=== PATIENT | female | born 1990 | race Caucasian/White ===

== ENCOUNTER 2017-03-01 23:29 | Inpatient (IN) | payer OTHER, MEDICAID ==
[~2017-03-01] VITALS: Ht 167.6 cm; Wt 109.6 kg
--- NOTE | ~2017-03-01 | CON ---
PATIENT'S NAME: ASUNCION LEI [facility] AGE: 26 Y [address] ROOM: [place] [address] LOCATION: [facility] ADMIT DATE: 03/01/2017 Consultation DISCHARGE DATE: 03/05/2017 FAMILY PHYSICIAN: Joy Crespo PA-C ATTENDING PHYSICIAN: Mattie Godinez DISCHARGE DIAGNOSES: 1. Status post spontaneous vaginal delivery. 2. Thirty-nine week intrauterine . 3. Labial hematoma. 4. Anemia from acute blood loss. REASON FOR ADMISSION: Labor and spontaneous rupture of membranes. PROCEDURES DURING ADMISSION: Spontaneous vaginal delivery and exam under anesthesia and evacuation of labia hematoma. Please refer to operative notes. HOSPITAL COURSE: The patient is a 26-year-old, -0-3-0, with intrauterine , thirty- nine weeks who presented in labor as well as with rupture of membranes. The patient did have augmentation with Pitocin during her labor and she progressed to complete and had a spontaneous vaginal delivery of a 9 pounds and 10 ounce male infant. Postoperatively, the patient developed a very large 20 x 15 cm hematoma on her right labia that is extending onto her left labia. She was taken to the OR, where evacuation was performed and it was closed. Postoperatively, the patient's hemoglobin was 8.7. A Larry catheter was left in place for 24 hours, it was removed and the patient was able to urinate. She is able ambulate, she was tolerating p.o., and was asymptomatic from her anemia. She desired discharge home on post day #3 and postoperative day #2. DISCHARGE INSTRUCTIONS: The patient is instructed to call if fever greater than 100.4, pain not controlled by pain medication. If her labia becomes red or looks infected or with heavy vaginal bleeding, the patient was also instructed on nothing in the vagina for at least six weeks. DISCHARGE MEDICATIONS: 1. Percocet. 2. Ibuprofen. 3. Colace. 4. Ferrous sulfate. PATIENT'S NAME: ASUNCION LEI [facility] AGE: 26 Y [address] ROOM: [place] [address] LOCATION: [facility] ADMIT DATE: 03/01/2017 Consultation DISCHARGE DATE: 03/05/2017 FAMILY PHYSICIAN: Joy Crespo PA-C ATTENDING PHYSICIAN: Mattie Godinez FOLLOWUP: The patient will follow up in [address] York. MD MIKAYLA GEORGE/julissal /[id number] d: 03/06/17 1410 t: 03/08/17 0857, CONSULTATION REPORT
--- NOTE | ~2017-03-01 | OR ---
PAT[facility] AGE: 26 Y [address] ROOM: [place] [address] LOCATION: [facility] ADMIT DATE: 03/01/2017 OR/Procedure Report DISCHARGE DATE: FAMILY PHYSICIAN: Joy Crespo PA-C ATTENDING PHYSICIAN: GUMARO JACOBSON SURGEON: Thomas York MD INTERACTIVE PROJECT MANAGER: Saida Pittman MD. DATE OF PROCEDURE: 03/03/2017 PREOPERATIVE DIAGNOSES: 1. Enlarging vulvar hematoma. 2. Status post spontaneous vaginal delivery. POSTOPERATIVE DIAGNOSES: 1. Enlarging vulvar hematoma. 2. Status post spontaneous vaginal delivery. PROCEDURE PERFORMED: Exam under anesthesia and evacuation of labial hematoma. ANESTHESIA: Epidural. FINDINGS: Right labial hematoma measuring 20 x 14 cm extending down the perineum and up the left vulva or left labia. A 200 mL of clot removed. EBL: 400 mL, 200 from the surgical case and 200 evacuated clot giving a total of 400 mL. COMPLICATIONS: None. INDICATIONS: The patient is a 26-year-old female who delivered at 2133 hours on 03/02/2017. She had a spontaneous vaginal delivery with a first-degree laceration at the hymen. Her weight was 4275 grams. The patient only pushed for 20 minutes and had minimal swelling after delivery. Two hours after delivery, I was notified by the nursing staff that the patient had golf ball-sized hematoma on her right labia that was painful and I recommended that they place a Larry catheter just in case the hematoma extended and place ice and pressure and continue to watch. About an hour later, I was notified that the hematoma had tripled in size, and the patient was experiencing significant pain. I recommended that the nurses give the patient IV morphine for pain control, then continue to apply pressure. About 20 to 30 minutes later, I was notified that it was continuing to extend and then starting to become an excruciating pain. I, therefore, arrived at the hospital. The patient received fentanyl for pain control and an examination was performed. Given the size and the rapid expanding nature of the hematoma, surgical exploration was recommended. Hemoglobin was checked and was 9.1, down from 12.2 on [facility] 26 Y [address] ROOM: [id number] [place], [place] [address] LOCATION: [facility] ADMIT DATE: 03/01/2017 OR/Procedure Report DISCHARGE DATE: FAMILY PHYSICIAN: Joy Crespo PA-C ATTENDING PHYSICIAN: GUMARO JACOBSON admission. Her platelets were normal at 209. A PTT, an INR, and a fibrinogen were also checked and were also normal. The patient was counseled about exam under anesthesia and possible evacuation of this vulvar hematoma. She was counseled on the risks including further bleeding, infection, and damage to any surrounding organs and tissue as well as need for further surgeries, procedures, or hospitalizations due to any complications. The patient was also asked if she would accept a blood transfusion if we felt they were medically necessary or if we felt we needed to do so to save her life, and the patient declined due to anabaptist preferences even if it was needed to save her life. She did tell me, however, that she was okay receiving cryoprecipitate, FFP, platelets, or any other blood products other than packed red blood cells. She did decline using Cell Saver and told the anesthesiologist that she declined albumin. DESCRIPTION OF PROCEDURE: The patient was taken to the operating room. She was placed in dorsal lithotomy position. An epidural was already in place and anesthesia was found to be adequate with this. She was prepped with Betadine and draped in the usual sterile fashion. A time-out was performed. Examination revealed that the hematoma measured about 20 x 14 cm on the right labia and extended down across the perineum and up the left labia about 10 cm x 3 cm. Examination of the vaginal showed that the hematoma did not extend to the vaginal tissue, but possibly the area where the clot is mostly underlying was extending up from the hymenal laceration. The sutures in the hymenal laceration were cut. An incision was made along her right labia over the hematoma and about 200 mL of clot was removed. The patient did still have significant edema after removal of this clot. The tissue was noted to be oozing with bright red blood, but no significant arterial bleeding spots were noted. The area was cauterized somewhat but then was closed in multiple layers with running locked 0 Vicryl suture for hemostasis. Floseal was then placed over this area. The skin edges were loosely approximated with 4-0 Vicryl in interrupted sutures. The hymen was then reapproximated with 2 interrupted 3-0 Vicryl sutures. The area was observed for about 10 minutes and no further hematoma development was noted. Like I said the patient did have some induration from swelling and swelling of bilateral labia, but this are was marked to ensure that it did not continue to grow. Instrument, sponge, and needle counts were correct at the conclusion of the case. DISPOSITION: The patient stable to PACU. MD MIKAYLA GEORGE/zayda PATIENT'S NAME: ASUNCION LEI [facility] AGE: 26 Y [address] ROOM: [place] [address] LOCATION: [facility] ADMIT DATE: 03/01/2017 OR/Procedure Report DISCHARGE DATE: FAMILY PHYSICIAN: Joy Crespo PA-C ATTENDING PHYSICIAN: GUMARO JACOBSON /[id number] d: 03/03/17520 t: 03/06/17 1240, OPERATIVE SUMMARY
--- NOTE | ~2017-03-01 | OR ---
PATIENT'S NAME: ASUNCION LEI [facility] AGE: 26 Y [address] ROOM: [place] [address] LOCATION: [facility] ADMIT DATE: 03/01/2017 OR/Procedure Report DISCHARGE DATE: FAMILY PHYSICIAN: Joy Crespo PA-C ATTENDING PHYSICIAN: GUMARO JACOBSON SURGEON: Thomas York MD RESPIRATORY CLINICIAN: DATE OF PROCEDURE: 03/02/2017 PREOPERATIVE DIAGNOSES: 1. Intrauterine at 39 weeks and 1 day. 2. Active labor. 3. GBS positive. POSTOPERATIVE DIAGNOSES: 1. Intrauterine at 39 weeks and 1 day. 2. Active labor. 3. GBS positive. PROCEDURE PERFORMED: Spontaneous vaginal delivery over intact perineum. ANESTHESIA: Epidural. FINDINGS: Viable male infant with score of 7 and 8 and weight of 9 pounds 7 ounces. Placenta intact with three-vessel cord. First-degree perineal laceration. EBL: 300 mL. COMPLICATIONS: None. INDICATIONS: The patient is a 26-year-old G4, P0-0-3-0, with intrauterine at 39 weeks 1 day, who presented to Labor and Delivery on 03/01/2017 in the evening reporting contraction since 6 p.m. She reports leaking fluid since 7 p.m. on 03/01/2017. She had change to her cervix from 1 to 2 cm. Nitrazine was negative, but she continued to leak fluid. Abdomen was dana every 1 to 2 minutes. She slowly progressed to 3 cm and had artificial rupture of membranes at 4 cm around 8:30 in the morning on 03/02/2017. Fluid was pink-tinged but no meconium was noted. The patient was GBS positive and received penicillin on admission and every 4 hours throughout her labor course. The patient progressed throughout the day. Pitocin was started at 8 cm. She then progressed to complete and started maternal expulsive efforts. DESCRIPTION OF PROCEDURE: The patient was placed in dorsal lithotomy. She PATIENT'S NAME: ASUNCION LEI [facility] AGE: 26 Y [address] ROOM: [place] [address] LOCATION: [facility] ADMIT DATE: 03/01/2017 OR/Procedure Report DISCHARGE DATE: FAMILY PHYSICIAN: Joy Crespo PA-C ATTENDING PHYSICIAN: GUMARO JACOBSON was prepped and draped in the usual fashion. With maternal expulsive effort over intact perineum, the head was delivered in a straight OA position. The head was restituted and no nuchal cord was noted. The anterior shoulder then delivered followed by the posterior shoulder and the remainder of the fetus. The was placed on the mother's abdomen. After 30 seconds the cord was clamped and cut. Cord blood was then obtained. Placenta then delivered spontaneously intact with a 3-vessel cord. The vagina, cervix, and perineum were inspected and a first-degree laceration was noted and was closed in the usual fashion with 3-0 Vicryl. Instrument, sponge, and needle counts were correct at the conclusion of the case. DISPOSITION: Mom stable. Baby in room with mom. MD MIKAYLA GEORGE/zayda /[id number] d: 03/03/17 0211 t: 03/06/17 1238, OPERATIVE SUMMARY
[~2017-03-01 23:29] MED LIST: PRENATAL 1+1)(P1 TAB PO
[2017-03-02 01:05] LABS: BASOPHIL # 0.1 K/uL (0.0-0.2); BASOPHIL % 0.4 %; EOSINOPHIL # 0.3 K/uL (0.0-0.5); EOSINOPHIL % 1.4 %; HEMATOCRIT 37.1 % (33.0-46.0); HEMOGLOBIN 12.2 g/dL (11.0-15.0); IMMATURE GRANULOCYTE # 0.1 K/uL (0.0-0.3); IMMATURE GRANULOCYTE % 0.6 %; LYMPHOCYTE # 2.9 K/uL (0.8-4.0); LYMPHOCYTE % 14.5 %; MCH 28.2 pg (27.0-34.0); MCHC 32.9 gm/dL (32.0-36.5); MCV 85.9 fl (83.0-98.0); MONOCYTE # 1.1 K/uL (0.0-1.0); MONOCYTE % 5.7 %; MPV 11.5 fl (9.4-12.4); NEUTROPHIL # (ANC) 15.3 K/uL (1.8-7.8); NEUTROPHIL % 77.4 %; NRBC % 0 /100WBC (0-0.00); PLATELET COUNT 276 K/uL (150-450); RBC 4.32 M/uL (3.50-5.00); RDW-CV 13.7 % (11.9-14.6)
[2017-03-02 01:09] LABS: WBC 19.7 K/uL (4.0-11.0)
--- NOTE | 2017-03-02 05:44 | NUR ---
GBS Positive, has received 2 doses of pencillin so far. last VE: /-2. States she has been leaking fluid but nitrazine negative and BOW still felt upon VE. LR running at 125 mL/hr to L hand.
[2017-03-03 02:08] LABS: BASOPHIL % 0.2 %; HEMOGLOBIN 9.1 g/dL (11.0-15.0); IMMATURE GRANULOCYTE # 0.2 K/uL (0.0-0.3); IMMATURE GRANULOCYTE % 0.7 %; LYMPHOCYTE # 1.8 K/uL (0.8-4.0); LYMPHOCYTE % 7.9 %; MCV 85.5 fl (83.0-98.0); MONOCYTE # 1.6 K/uL (0.0-1.0); MPV 11.2 fl (9.4-12.4); NEUTROPHIL # (ANC) 19.1 K/uL (1.8-7.8); NEUTROPHIL % 84.2 %; NRBC % 0 /100WBC (0-0.00); RDW-CV 13.8 % (11.9-14.6)
[2017-03-03 02:09] LABS: HEMATOCRIT 27.1 % (33.0-46.0); MCH 28.7 pg (27.0-34.0); MCHC 33.6 gm/dL (32.0-36.5); PLATELET COUNT 209 K/uL (150-450); RBC 3.17 M/uL (3.50-5.00); WBC 22.6 K/uL (4.0-11.0)
[2017-03-03 02:17] LABS: INR - (THERAPEUTIC) 0.95 (0.92-1.07); PTT 32 SECONDS (25-32)
[2017-03-03 05:57] LABS: BASOPHIL % 0.2 %; EOSINOPHIL % 0.1 %; HEMATOCRIT 25.5 % (33.0-46.0); HEMOGLOBIN 8.7 g/dL (11.0-15.0); IMMATURE GRANULOCYTE # 0.2 K/uL (0.0-0.3); IMMATURE GRANULOCYTE % 0.8 %; LYMPHOCYTE # 2.5 K/uL (0.8-4.0); LYMPHOCYTE % 12.2 %; MCH 29.1 pg (27.0-34.0); MCHC 34.1 gm/dL (32.0-36.5); MCV 85.3 fl (83.0-98.0); MONOCYTE # 1.3 K/uL (0.0-1.0); MONOCYTE % 6.5 %; NEUTROPHIL # (ANC) 16.2 K/uL (1.8-7.8); NEUTROPHIL % 80.2 %; NRBC % 0 /100WBC (0-0.00); PLATELET COUNT 210 K/uL (150-450); RBC 2.99 M/uL (3.50-5.00); RDW-CV 13.8 % (11.9-14.6)
[2017-03-03 05:59] LABS: WBC 20.1 K/uL (4.0-11.0)
--- NOTE | 2017-03-03 06:36 | NUR ---
VSS. BACK FROM PACU AT 0505. LABIA SWOLLEN, ICE TO PERINEUM. EPIDURAL IN PLACE. GERRY SHAVER AND JORDANA WILL ROUND AROUND 7.
--- NOTE | 2017-03-03 18:59 | NUR ---
Last VS: T:98.2 P:109 R: 14 BP: 104/59 Pain ratin-3 Last pain med: percocet/motrin at 1720 Medicated at: Effective: Breasts: , Nipples: Fundus: firm and 1 finger down Lochia: small flow Epis/Perineum: bottom is very, very swollen. uses dermaplast spray, tucks pads for hemmoroids and ice packs to bottom. Voiding well: 1200 clear yellow urine emptied from catheter bag. Significant event: . patient got up and showered and tidy done. continues with pneumatic hose.
--- NOTE | 2017-03-04 05:55 | NUR ---
Significant Event: VSS. church intact and patent draining yellow urine. Motrin/percocet given last at with relief Follow up:
--- NOTE | 2017-03-05 04:20 | NUR ---
VSS, independent with cares, last had Percocet at 0210 and motrin at 1930
[2017-03-05] MEDS ORDERED: MOTRIN800 MG PO (13:21)
[2017-03-05] MEDS ORDERED: SURFAK240 MG PO (13:21)
[2017-03-05] MEDS ORDERED: PERCOCET 5-3251 EACH PO (13:22)
[2017-03-05] MEDS ORDERED: FEOSOL325 MG PO (13:22)
== END 2017-03-05 15:00 | disposition disaster alternative care site (69) | DRG 774 ==
LOC: GOBS 23:29
PROVIDERS: Obstetrics & Gynecology; ADMIT Obstetrics & Gynecology
DX: O99.824 Streptococcus B carrier state complicating childbirth (principal); O90.2 Hematoma of obstetric wound; D62 Acute posthemorrhagic anemia; O70.0 First degree perineal laceration during delivery; O90.81 Anemia of the puerperium; Z3A.39 39 weeks gestation of pregnancy; Z37.0 Single live birth
CPT/HCPCS: J2270; J2540; J2590; J3010; J7120